=== PATIENT | male | born 1965 | race Caucasian/White ===

== ENCOUNTER 2020-05-27 15:31 | Inpatient (IN) | payer BC ==
--- NOTE | 2020-05-27 15:48 | ED ---
SOB HPI - General Chief Complaint: Upper Respiratory Infection Stated Complaint: JUAN, +COVID Time Seen by Provider: 05/27/20 15:44 Source: patient, RN notes reviewed, old records reviewed Mode of arrival: ambulatory Limitations: no limitations - History of Present Illness Initial Comments: This is a 54-year-old male DF for evaluation presents today for evaluation regards to shortness of breath known history of coronavirus infection positive coronavirus testing and sent in today for evaluation of low oxygen level along with. Patient has had persistent fevers and not feeling well. Patient does have history of high blood pressure high cholesterol MD Complaint: shortness of breath, cough -: days(s) Severity: moderate Severity scale (1-10): 7 Quality: dull Consistency: constant Improves With: nothing Worsens With: exertion, movement Known History Of: other (Known coronavirus) Context: recent URI, recent illness Associated Symptoms: cough Treatments Prior to Arrival: none - Related Data Allergies Allergy/AdvReac Type Severity Reaction Status Date / Time No Known Allergies Allergy Verified 05/27/20 15:37 Review of Systems ROS Statement: Those systems with pertinent positive or pertinent negative responses have been documented in the HPI. ROS Other: All systems not noted in ROS Statement are negative. Past Medical History Past Medical History: Hyperlipidemia, Hypertension History of Any Multi-Drug Resistant Organisms: None Reported Past Surgical History: Coronary Bypass/CABG, Heart Catheterization With Stent Past Psychological History: No Psychological Hx Reported Smoking Status: Never smoker Past Alcohol Use History: Occasional Past Drug Use History: None Reported General Exam Limitations: no limitations General appearance: alert, in no apparent distress, anxious Head exam: Present: atraumatic, normocephalic, normal inspection Eye exam: Present: normal appearance, PERRL, EOMI. Absent: scleral icterus, co njunctival injection, periorbital swelling ENT exam: Present: normal exam, mucous membranes moist Neck exam: Present: normal inspection. Absent: tenderness, meningismus, lymphadenopathy Respiratory exam: Present: normal lung sounds bilaterally. Absent: respiratory distress, wheezes, rales, rhonchi, stridor Cardiovascular Exam: Present: regular rate, normal rhythm, normal heart sounds. Absent: systolic murmur, diastolic murmur, rubs, gallop, clicks GI/Abdominal exam: Present: soft, normal bowel sounds. Absent: distended, tenderness, guarding, rebound, rigid Extremities exam: Present: normal inspection, full ROM, normal capillary refill. Absent: tenderness, pedal edema, joint swelling, calf tenderness Back exam: Present: normal inspection Neurological exam: Present: alert, oriented X3, CN II-XII intact Psychiatric exam: Present: normal affect, normal mood Skin exam: Present: warm, dry, intact, normal color. Absent: rash Course Vital Signs 05/27/20 05/27/20 15:38 16:17 Temperature 99.6 F 102.4 F H Pulse Rate 92 Respiratory 18 Rate Blood Pressure 131/84 O2 Sat by Pulse 96 Oximetry - Reevaluation(s) Reevaluation #1: 05/27/20 17:29 Medical records reviewed Reevaluation #2: 05/27/20 17:29 This is certainly short of breath 05/27/20 17:29 Patient has no pain fever and symptoms are improved Reevaluation #3: 05/27/20 17:29 Spoke patient regarding findings, questions answered - Consultations Consultation #1: Spoke with PMH who we will admit Medical Decision Making - Medical Decision Making 54 male DF for evaluation patient Dese for evaluation of positive coronavirus l ow oxygen, patient is positive coronavirus pneumonia patient be admitted for continued medication treatment and evaluation monitoring of pulmonary support - Lab Data Result diagrams: 05/27/20 16:01 05/27/20 16:01 Lab Results 05/27/20 05/27/20 05/27/20 Range/Units 16:01 16:01 16:01 WBC 6.5 (3.8-10.6) k/uL RBC 5.14 (4.30-5.90) m/uL Hgb 15.4 (13.0-17.5) gm/dL Hct 45.3 (39.0-53.0) % MCV 88.2 (80.0-100.0) fL MCH 30.0 (25.0-35.0) pg MCHC 34.0 (31.0-37.0) g/dL RDW 12.5 (11.5-15.5) % Plt Count 177 (150-450) k/uL Neutrophils % 75 % Lymphocytes % 18 % Monocytes % 5 % Eosinophils % 1 % Basophils % 1 % Neutrophils # 4.9 (1.3-7.7) k/uL Lymphocytes # 1.2 (1.0-4.8) k/uL Monocytes # 0.3 (0-1.0) k/uL Eosinophils # 0.0 (0-0.7) k/uL Basophils # 0.0 (0-0.2) k/uL PT 9.7 (9.0-12.0) sec INR 0.9 (<1.2) APTT 24.5 (22.0-30.0) sec Sodium 134 L (137-145) mmol/L Potassium 3.7 (3.5-5.1) mmol/L Chloride 101 (98-107) mmol/L Carbon Dioxide 24 (22-30) mmol/L Anion Gap 9 mmol/L BUN 16 (9-20) mg/dL Creatinine 0.80 (0.66-1.25) mg/dL Est GFR (CKD-EPI)AfAm >90 (>60 ml/min/1.73 sqM) Est GFR (CKD-EPI)NonAf >90 (>60 ml/min/1.73 sqM) Glucose 104 H (74-99) mg/dL Plasma Lactic Acid Ariel (0.7-2.0) mmol/L Calcium 8.5 (8.4-10.2) mg/dL Magnesium 2.2 (1.6-2.3) mg/dL Total Bilirubin 0.8 (0.2-1.3) mg/dL AST 49 (17-59) U/L ALT 39 (4-49) U/L Alkaline Phosphatase 77 (38-126) U/L Lactate Dehydrogenase 812 H (313-618) U/L C-Reactive Protein 54.2 H (<10.0) mg/L Total Protein 6.8 (6.3-8.2) g/dL Albumin 3.9 (3.5-5.0) g/dL 05/27/20 Range/Units 16:01 WBC (3.8-10.6) k/uL RBC (4.30-5.90) m/uL Hgb (13.0-17.5) gm/dL Hct (39.0-53.0) % MCV (80.0-100.0) fL MCH (25.0-35.0) pg MCHC (31.0-37.0) g/dL RDW (11.5-15.5) % Plt Count (150-450) k/uL Neutrophils % % Lymphocytes % % Monocytes % % Eosinophils % % Basophils % % Neutrophils # (1.3-7.7) k/uL Lymphocytes # (1.0-4.8) k/uL Monocytes # (0-1.0) k/uL Eosinophils # (0-0.7) k/uL Basophils # (0-0.2) k/uL PT (9.0-12.0) sec INR (<1.2) APTT (22.0-30.0) sec Sodium (137-145) mmol/L Potassium (3.5-5.1) mmol/L Chloride (98-107) mmol/L Carbon Dioxide (22-30) mmol/L Anion Gap mmol/L BUN (9-20) mg/dL Creatinine (0.66-1.25) mg/dL Est GFR (CKD-EPI)AfAm (>60 ml/min/1.73 sqM) Est GFR (CKD-EPI)NonAf (>60 ml/min/1.73 sqM) Glucose (74-99) mg/dL Plasma Lactic Acid Ariel 1.5 (0.7-2.0) mmol/L Calcium (8.4-10.2) mg/dL Magnesium (1.6-2.3) mg/dL Total Bilirubin (0.2-1.3) mg/dL AST (17-59) U/L ALT (4-49) U/L Alkaline Phosphatase (38-126) U/L Lactate Dehydrogenase (313-618) U/L C-Reactive Protein (<10.0) mg/L Total Protein (6.3-8.2) g/dL Albumin (3.5-5.0) g/dL - EKG Data -: EKG Interpreted by Me (EKG shows sinus rhythm 92 NM 186 QRS 90 QTC 435) - Radiology Data Radiology results: report reviewed (Chest x-rays positive for pneumonia), image reviewed Critical Care Time Critical Care Time: Yes Total Critical Care Time: 31 Disposition Clinical Impression: Fever, Coronavirus infection, Pneumonia due to COVID-19 virus, Hypoxia Disposition: ADMITTED IP TO THIS [facility] Condition: Fair Is patient prescribed a controlled substance at d/c from ED?: No Referrals: Omar Spencer MD [Primary Care Provider] - 1-2 days
[2020-05-27 16:30] LABS: Basophils % (A) 1 %; Eosinophils % (A) 1 %; HCT 45.3 % (39.0-53.0); HGB 15.4 gm/dL (13.0-17.5); Lymphocytes # (A) 1.2 k/uL (1.0-4.8); Lymphocytes % (A) 18 %; MCV 88.2 fL (80.0-100.0); Mean Platelet Volume 7.1; Monocytes # (A) 0.3 k/uL (0-1.0); Monocytes % (A) 5 %; Neutrophils # (A) 4.9 k/uL (1.3-7.7); Neutrophils % (A) 75 %; Platelet Count 177 k/uL (150-450); RBC 5.14 m/uL (4.30-5.90); RDW 12.5 % (11.5-15.5); WBC 6.5 k/uL (3.8-10.6)
[2020-05-27 16:40] LABS: INR 0.9 (<1.2); Partial Thromboplastin Time 24.5 sec (22.0-30.0); Prothrombin Time 9.7 sec (9.0-12.0)
[2020-05-27] MEDS ORDERED: ACETAMINOPHEN TAB 500 MG TAB PO STA (16:46)
[2020-05-27] MEDS ORDERED: IBUPROFEN 600 MG TAB PO STA (16:46)
--- NOTE | 2020-05-27 16:46 | XR ---
EXAMINATION TYPE: XR chest 1V portable DATE OF EXAM: 05/27/2020 COMPARISON: NONE HISTORY: Short of breath TECHNIQUE: Single view FINDINGS: Heart is normal. There is some infiltrate left lower lobe. There are sternal wires. There a re chest leads. Costophrenic angles are clear. IMPRESSION: Mild infiltrate in the left lower lobe. No heart failure seen. Normal heart.
[2020-05-27 16:47] LABS: ALT 39 U/L (4-49); AST 49 U/L (17-59); African American GFR (CKD) >90 (>60 ml/min/1.73 sqM); Albumin 3.9 g/dL (3.5-5.0); Alkaline Phosphatase 77 U/L (38-126); Anion Gap 9 mmol/L; Blood Urea Nitrogen 16 mg/dL (9-20); C Reactive Protein 54.2 mg/L (<10.0); Calcium 8.5 mg/dL (8.4-10.2); Carbon Dioxide 24 mmol/L (22-30); Chloride 101 mmol/L (98-107); Glucose 104 mg/dL (74-99); LDH 812 U/L (313-618); Magnesium 2.2 mg/dL (1.6-2.3); Non-African American GFR(CKD) >90 (>60 ml/min/1.73 sqM); Potassium 3.7 mmol/L (3.5-5.1); Sodium 134 mmol/L (137-145); Total Bilirubin 0.8 mg/dL (0.2-1.3); Total Protein 6.8 g/dL (6.3-8.2)
[2020-05-27] MEDS ORDERED: IPRATROPIUM-ALBUTEROL 3 ML NEB INHALATION PRN (17:25)
[2020-05-27] MEDS ORDERED: PNEUMONIA PROTOCOL UTILIZED 1 EACH MISC PO PRN (17:25)
[2020-05-27] MEDS: SODIUM CHLORIDE 0.9% 1,000 ML IV SCH (18:16)
[2020-05-27] MEDS ORDERED: ALBUTEROL HFA INHALER INHALATION PRN (19:38)
[2020-05-28 03:00] LABS: Ferritin 385.2 ng/mL (22.0-322.0)
[2020-05-28] MEDS: SODIUM CHLORIDE 0.9% 1,000 ML IV SCH ×3 (05:32→22:53)
[2020-05-28] MEDS: ENOXAPARIN 40 MG/0.4 ML SYRINGE SQ SCH (07:57)
[2020-05-28] MEDS: ALBUTEROL HFA INHALER INHALATION PRN ×4 (09:59→21:03)
[2020-05-28] MEDS ORDERED: ZINC SULFATE 220 MG CAP PO SCH (11:30)
[2020-05-28] MEDS: ASCORBIC ACID 500 MG TAB PO SCH (12:03)
[2020-05-28] MEDS: FAMOTIDINE 20 MG TAB PO SCH (12:03)
[2020-05-28] MEDS: CHOLECALCIFEROL 400 UNIT TAB PO SCH (12:04)
[2020-05-28] MEDS: ZINC SULFATE 220 MG CAP PO SCH (12:04)
[2020-05-28] MEDS: dexAMETHasone 2 MG TAB PO SCH (12:04)
[2020-05-28] MEDS: DOXYCYCLINE 100 MG CAP PO SCH ×2 (14:38→20:59)
[2020-05-28] MEDS ORDERED: REMDESIVIR (EUA) 200 MG in SODIUM CHLORIDE 0.9% 250 ML IVPB ONE (16:00)
--- NOTE | 2020-05-28 17:07 | CONS ---
CONSULTATION PULMONARY/CRITICAL CARE CONSULTATION: DATE OF SERVICE: 05/28/2020 This is a 54-year-old gentleman who was admitted with a diagnosis of a Covid-19 pneumonitis. The patient apparently was tested at a [place] facility earlier this past week. He tested positive and was told because he really did not have much in the way of significant symptoms just to go home and rest. At that time, the symptoms included slight fever, headache, muscle aches, joint aches, etc. As the week progressed and as he talked to his physician, the patient's symptoms progressed. He became more short of breath. He had higher fever. He had headache. He just was not feeling any better and for that reason, he came in to be evaluated. He was admitted with a diagnosis of Covid-19 pneumonia. Currently, the patient is feeling a bit short of breath. He did use oxygen last night. He typically does not use oxygen. His symptoms have been primarily what was previously mentioned including fever, chills, cough, shortness of breath, muscle aches, joint aches and severe headache. The patient does carry with him a diagnosis of hypertension and hyperlipidemia. Currently, he is resting comfortably. He has an IV in place. He is on some nasal O2 at 2 L. CURRENT HOME MEDICATIONS: Include Lipitor, aspirin, metoprolol, lisinopril/hydrochlorothiazide, and Plavix. ALLERGIES: Denied. MEDICAL HISTORY: Hyperlipidemia, hypertension, CAD, bypass grafting, heart catheterization with stent. SURGICAL HISTORY: Includes bypass grafting and heart catheterization with stent. SOCIAL HISTORY: Positive for occasional alcohol use. He denies tobacco use. Denies any illicit drug use. FAMILY HISTORY: Noncontributory. Family is healthy. REVIEW OF SYSTEMS: CONSTITUTIONAL: Weakness, fever, fatigue. NEUROLOGIC: Headache. HEENT: Negative. CARDIOVASCULAR: Negative. PULMONARY: Cough, shortness of breath. GI: Negative. : Negative. RHEUMATOLOGIC: Joint aches, muscle aches. IMMUNOLOGIC: Negative. ENDOCRINOLOGIC: Negative. DERMATOLOGIC: Negative. PHYSICAL EXAMINATION: Vital signs are reviewed. Temperature 99.8, T-max 102.4, heart rate is 103, respiratory rate 20, blood pressure 127/77, mean 93, room air saturations 93%. He appears just mildly tachypneic. No audible wheezing, use of accessory muscles or conversational dyspnea. HEENT: Examination is grossly unremarkable. Mucous membranes are moist. Nasal O2 noted. NECK: Supple. Full range of motion. No adenopathy. Neck veins are flat. CARDIOVASCULAR: Examination reveals mild tachycardia. Heart rate about 100. S1, S2 normal. No murmur. LUNGS: Reveal diffuse coarse rhonchi bilaterally. No wheezes or crackles. ABDOMEN: Soft. Bowel sounds are heard. EXTREMITIES are intact. No cyanosis, clubbing, or edema. SKIN: Without rash. NEUROLOGIC: Examination is brief but nonfocal. LABS: Reviewed. White count 6.5, hemoglobin 15.4, hematocrit 45.3, platelet count 177,000. PT/INR PTT normal. D-dimer 0.31. Sodium 134, potassium 3.7, chloride 101, CO2 24, gap 9. BUN and creatinine were 16 and 0.8. Glucose 104, ferritin 385, LDH 812. C- reactive protein 54.2. Chest x-ray in my opinion shows minimal to mild infiltrate in the left lower lobe. Current medications are reviewed. The patient is on Tylenol, albuterol inhaler, vitamin C, vitamin D3, Decadron, doxycycline, Lovenox, Pepcid, ibuprofen, melatonin, a saline IV at 100 mL an hour, and zinc. We did ask pharmacy to provide Remdesivir. ASSESSMENT: 1. Covid-19 pneumonia/pneumonitis. 2. History of hypertension. 3. Hyperlipidemia. 4. History of coronary artery disease with previous bypass grafting. 5. Previous heart catheterization with stent. PLAN: Please see the above orders. We asked for all those orders plus Remdesivir. We will have to check with the nurse and make sure that it was prescribed. Typically it is 200 mg IV on day 1, 100 mg IV on day 2, 3, 4 and 5. No additional recommendations are made. We will continue to follow. Prognosis is guarded. Will be on the lookout for early deterioration which might necessitate transfer to the intensive care unit. MMODL / IJN: [id number] /
[2020-05-28] MEDS: MELATONIN 5 MG TABLET PO SCH (20:59)
--- NOTE | 2020-05-28 22:13 | P.HPIM ---
History of Present Illness H&P Date: 05/28/20 Chief Complaint: JUAN Patient is in 54-year-old male with a known history of hypertension, hyperlipidemia, coronary artery disease with history of bypass graft and also stent placement came to ER with complaints of worsening shortness of breath and persistence fevers and not feeling well. Patient states that he has been having shortness of breath and cough and fevers and cold-like symptoms for the past 2 weeks and was seen at [facility] about a week ago and tested for COVID-19 viral infection which came out positive. Patient was told to go to hospital if he gets low oxygen below 90%. Patient presents to ER due to shortness of breath and not feeling well. Chest x-ray showed mild infiltrate in the left lower lobe. No heart failure is seen. Normal heart. Lab data showed d-dimer 0.31, ferritin 385, LDH 812 and CRP 54.2 TSH 2.94 Procalcitonin 0.05 Review of Systems Constitutional: does have fever, no chills . generalized weakness and malaise. Abdomen: Patient denied nausea vomiting and diarrhea and abdominal pain. Cardiovascular: Patient denies any chest pain or short of breath no palpitations. Respiratory: patient does have cough without sputum production. + shortness of breath Neurologic: Patient denied any numbness or tingling headache. Musculoskeletal: Patient denies any complaints of joint swelling or deformity. Skin: Negative Psychiatric: Negative Endocrine: No heat or cold intolerance. No recent weight gain. Genitourinary: No dysuria or hematuria. All other 14 point ROS negative except the above Past Medical History Past Medical History: Hyperlipidemia, Hypertension History of Any Multi-Drug Resistant Organisms: None Reported Past Surgical History: Coronary Bypass/CABG, Heart Catheterization With Stent Past Anesthesia/Blood Transfusion Reactions: No Reported Reaction Date of Last Stent Placement:: 02/24/2018 Past Psychological History: No Psychological Hx Reported Smoking Status: Never smoker Past Alcohol Use History: Occasional Past Drug Use History: None Reported Medications and Allergies Home Medications Medication Instructions Recorded Confirmed Type Aspirin [Jeannette Aspirin EC] 81 mg PO DAILY 05/27/20 05/27/20 History Atorvastatin Calcium [Lipitor] 80 mg PO HS 05/27/20 05/27/20 History Clopidogrel [Plavix] 75 mg PO DAILY 05/27/20 05/27/20 History Lisinopril-Hctz 20-12.5 mg 1 tab PO DAILY 05/27/20 05/27/20 History [Zestoretic 20-12.5] Metoprolol Succinate (ER) [Toprol 50 mg PO DAILY 05/27/20 05/27/20 History XL] Allergies Allergy/AdvReac Type Severity Reaction Status Date / Time No Known Allergies Allergy Verified 05/27/20 15:37 Physical Exam Vitals: Vital Signs Temp Pulse Pulse Resp BP BP Pulse Ox 05/28/20 08:08 20 05/28/20 07:26 99.8 F H 83 17 127/77 93 L 05/28/20 00:45 97.7 F 103 H 20 141/42 95 05/28/20 00:00 16 05/27/20 19:45 16 05/27/20 19:18 78 16 05/27/20 19:08 76 18 05/27/20 18:30 98.7 F 74 16 131/82 95 05/27/20 18:20 99.5 F 74 16 134/89 97 05/27/20 16:17 102.4 F H 05/27/20 15:38 99.6 F 92 18 131/84 96 Intake and Output 05/27/20 05/28/20 05/28/20 22:59 06:59 14:59 Other: Voiding Method Toilet Toilet Toilet # Voids 1 1 Weight 106.594 kg PHYSICAL EXAMINATION: Patient is lying in the bed comfortably, no acute distress, awake alert and oriented.. HEENT: Normocephalic. Neck is supple. Pupils reactive. Nostrils clear. Oral cavity is moist. Ears reveal no drainage. Neck reveals no JVD, carotid bruits, or thyromegaly. CHEST EXAMINATION: Trachea is central. Symmetrical expansion. Lung miller clear to auscultation and percussion. CARDIAC: Normal S1, S2 with no gallops. No murmurs ABDOMEN: Soft. Bowel sounds normal. No organomegaly. No abdominal bruits. Extremities: reveal no edema. No clubbing or cyanosis Neurologically awake, alert, oriented x3 with well-coordinated movements. No focal deficits noted Skin: No rash or skin lesions. Psychiatric: Coperative. Nonsuicidal Musculoskeletal: No joint swelling or deformity. Normal range of motion. Results CBC & Chem 7: 05/27/20 16:01 05/27/20 16:01 Labs: Abnormal Lab Results - Last 24 Hours (Table) 05/27/20 Range/Units 16:01 Sodium 134 L (137-145) mmol/L Glucose 104 H (74-99) mg/dL Ferritin 385.2 H (22.0-322.0) ng/mL Lactate Dehydrogenase 812 H (313-618) U/L C-Reactive Protein 54.2 H (<10.0) mg/L Thrombosis Risk Factor Assmnt - DVT/VTE Prophylaxis DVT/VTE Prophylaxis: Pharmacologic Prophylaxis ordered - Choose All That Apply Each Factor Represents 1 point: Age 41-60 years Other Risk Factors: No Thrombosis Risk Factor Assessment Total Risk Factor Score: 1 Thrombosis Risk Factor Assessment Level: Low Risk Assessment and Plan Assessment: COVID-19 pneumonia mainly left lower lobe Hypertension Hyperlipidemia Coronary disease with a stent placement History of coronary artery bypass graft DVT prophylaxis Plan: Patient will be continued on oxygen therapy and was started on dexamethasone 6 mg daily. Continued anticoagulation with Lovenox 40 mg subcu daily and Remdesivir was started. Pulmonary and ID is on board. Continue to follow closely for any respiratory failure. Time with Patient: Greater than 30
--- NOTE | 2020-05-28 23:40 | P.CONS ---
History of Present Illness - Reason for Consult Consult date: 05/28/20 covid 19 Requesting physician: Asiya Tyler - Chief Complaint fever and shortness of breath x few days - History of Present Illness Patient is a 54-year-old male with a past medical history on disease presenting to the ER with chief complaints of shortness of breath not feeling well and fever the patient's symptoms started about 2 weeks ago the patient curr ently did have symptoms mostly of a URI symptoms sore throat body aches afterwards for having shortness of breath or cough and fever patient apparently was seen at the [facility] about a week and he tested positive for covid 19, patient currently was thought to be not symptomatic from his illness and he was advised to rest at home patient mentions over the last few days started having any shortness of breath and cough, patient said that he talk to his primary care physician in the ER patient presented to [facility] ER last night patient on telemetry did have a fever of 102F patient did have O2 sats in the 90s patient did have a normal white count and no lymphopenia patient did have a normal d-dimer, liver enzymes normal pro-calcitonin was normal and speech and CRP slightly elevated patient did have a C6 with mild elevated left lower lobe patient has been admitted to the hospital for acute coronary event in the morning pulmonary service has seen the patient and started the patient on Remdisivir however the patient did refuse per the nursing staff Review of Systems Positive point has been mentioned in the HPI rest of the systems are negative Past Medical History Past Medical History: Hyperlipidemia, Hypertension History of Any Multi-Drug Resistant Organisms: None Reported Past Surgical History: Coronary Bypass/CABG, Heart Catheterization With Stent Past Anesthesia/Blood Transfusion Reactions: No Reported Reaction Date of Last Stent Placement:: 02/24/2018 Past Psychological History: No Psychological Hx Reported Smoking Status: Never smoker Past Alcohol Use History: Occasional Past Drug Use History: None Reported Medications and Allergies Home Medications Medication Instructions Recorded Confirmed Type Aspirin [Wolfe Aspirin EC] 81 mg PO DAILY 05/27/20 05/27/20 History Atorvastatin Calcium [Lipitor] 80 mg PO HS 05/27/20 05/27/20 History Clopidogrel [Plavix] 75 mg PO DAILY 05/27/20 05/27/20 History Lisinopril-Hctz 20-12.5 mg 1 tab PO DAILY 05/27/20 05/27/20 History [Zestoretic 20-12.5] Metoprolol Succinate (ER) [Toprol 50 mg PO DAILY 05/27/20 05/27/20 History XL] Allergies Allergy/AdvReac Type Severity Reaction Status Date / Time No Known Allergies Allergy Verified 05/27/20 15:37 Physical Exam Vitals: Vital Signs Temp Pulse Resp BP Pulse Ox 05/28/20 17:32 94 L 05/28/20 15:20 98.7 F 88 17 142/83 92 L 05/28/20 08:08 20 05/28/20 07:26 99.8 F H 83 17 127/77 93 L 05/28/20 00:45 97.7 F 103 H 20 141/42 95 05/28/20 00:00 16 Intake and Output 05/28/20 05/28/20 05/28/20 06:59 14:59 22:59 Intake Total 300 Balance 300 Intake: Oral 300 Other: Voiding Method Toilet Toilet # Voids 1 2 GENERAL DESCRIPTION: Middle-aged male lying in bed, no distress. No tachypnea or accessory muscle of respiration use. HEENT: Shows Pallor , no scleral icterus. Oral mucous membrane is dry. No pharyngeal erythema or thrush NECK: Trachea central, no thyromegaly. LUNGS: Unlabored breathing. Decreased intensity of breath sounds. No wheeze or crackle. HEART: S1, S2, regular rate and rhythm. No loud murmur ABDOMEN: Soft, no tenderness , guarding or rigidity, no organomegaly EXTREMITIES: No edema of feet. SKIN: No rash, no masses palpable. NEUROLOGICAL: The patient is awake, alert, oriented x3, mood and affect normal. Results CBC & Chem 7: 05/27/20 16:01 05/27/20 16:01 Labs: Abnormal Lab Results - Last 24 Hours (Table) 05/27/20 05/28/20 Range/Units 16:01 11:33 Ferritin 385.2 H (22.0-322.0) ng/mL Vitamin D 25-Hydroxy 24.9 L (30.0-100.0) ng/mL Microbiology - Last 24 Hours (Table) 05/27/20 16:01 Blood Culture - Preliminary Blood No Growth after 24 hours Assessment and Plan Assessment: 1- patient presented to hospital with increasing shortness of breath and cough in this patient's symptom has been going on for more than a week and about a we ek ago he was diagnosed with covid 19 infection at this patient to have a fever however the patient to not have lymphopenia elevated liver enzymes or elevated d-dimer at possibly the patient has possibly passed the viremic phase and the patient needed to be observed closely for cytokine storm and no evidence of secondary bacterial pneumonia (1) Pneumonia due to COVID-19 virus Current Visit: Yes Status: Acute Code(s): U07.1 - COVID-19; J12.89 - OTHER VIRAL PNEUMONIA SNOMED Code(s): 599119633834300062 Plan: 1- dexamethasone 6 mg by mouth daily, Lovenox and zinc sulfate 2- droplet isolation and respiratory support 3-no need for systemic antibiotics We will follow on clinical condition and cultures to further adjust medication if needed Thank you for this consultation will follow this patient with you Time with Patient: Greater than 30
[2020-05-29] MEDS: ALBUTEROL HFA INHALER INHALATION PRN ×2 (07:46→11:55)
[2020-05-29] MEDS: dexAMETHasone 2 MG TAB PO SCH (09:02)
[2020-05-29] MEDS: DOXYCYCLINE 100 MG CAP PO SCH ×2 (09:02→21:10)
[2020-05-29] MEDS: ENOXAPARIN 40 MG/0.4 ML SYRINGE SQ SCH (09:02)
[2020-05-29] MEDS: CHOLECALCIFEROL 400 UNIT TAB PO SCH (09:02)
[2020-05-29] MEDS: ASCORBIC ACID 500 MG TAB PO SCH (09:02)
[2020-05-29] MEDS: ZINC SULFATE 220 MG CAP PO SCH (09:02)
[2020-05-29] MEDS: FAMOTIDINE 20 MG TAB PO SCH (09:02)
[2020-05-29] MEDS: SODIUM CHLORIDE 0.9% 1,000 ML IV SCH (10:56)
[2020-05-29] MEDS ORDERED: REMDESIVIR (EUA) 200 MG in SODIUM CHLORIDE 0.9% 250 ML IVPB ONE (13:30)
--- NOTE | 2020-05-29 14:32 | P.PN ---
Subjective Progress Note Date: 05/29/20 Principal diagnosis: This is a pleasant 54-year-old gentleman who was admitted on 05/27/2020 with complaints of increasing shortness of breath cough and congestion. He had been tested in the outpatient setting at a [place] facility and was found to be CoVID 19 positive. X-ray does show evidence of CoVID pneumonitis. He had been seen and evaluated yesterday by Dr. Panchal who recommended initiating Remdesivir. However, the patient had read the pamphlet from the pharmacy and based on his recurrent kidney stones he was reluctant to start it. He is seen today in follow-up on the regular medical floor. He is resting fairly comfortably in bed. Awake and alert in no acute distress. O2 saturation 90% on room air. He's afebrile now. Hemodynamically stable. Blood culture reveals no growth. He remains on vitamin C, vitamin D, doxycycline, Lovenox, Pepcid, melatonin and zinc. Objective - Vital Signs Vital signs: Vital Signs Temp 98.0 F 05/29/20 07:00 Pulse 70 05/29/20 07:00 Resp 18 05/29/20 08:20 BP 127/74 05/29/20 07:00 Pulse Ox 90 L 05/29/20 07:00 Intake & Output 05/28/20 05/29/20 05/29/20 18:59 06:59 18:59 Intake Total 300 100 700 Balance 300 100 700 Intake: Intake, IV Titration 300 Amount Sodium Chloride 0.9% 1, 300 000 ml @ 75 mls/hr IV . [id number] [facility] Rx#:[id number] Oral 300 100 400 Other: Voiding Method Toilet Toilet Toilet # Voids 2 1 - Exam GENERAL EXAM: Alert, active, very pleasant 54-year-old gentleman, on room air, comfortable in no apparent distress. HEAD: Normocephalic. EYES: Normal reaction of pupils, equal size. NOSE: Clear with pink turbinates. THROAT: No erythema or exudates. NECK: No masses, no JVD. CHEST: No chest wall deformity. LUNGS: Equal air entry with few scattered rhonchi bilaterally. CVS: S1 and S2 normal with no audible murmur, regular rhythm. ABDOMEN: No hepatosplenomegaly, normal bowel sounds, no guarding or rigidity. SPINE: No scoliosis or deformity SKIN: No rashes CENTRAL NERVOUS SYSTEM: No focal deficits, tone is normal in all 4 extremities. EXTREMITIES: There is no peripheral edema. No clubbing, no cyanosis. Peripher al pulses are intact. - Labs CBC & Chem 7: 05/27/20 16:01 05/27/20 16:01 Labs: Abnormal Lab Results - Last 24 Hours (Table) 05/28/20 Range/Units 11:33 Vitamin D 25-Hydroxy 24.9 L (30.0-100.0) ng/mL Microbiology - Last 24 Hours (Table) 05/27/20 16:01 Blood Culture - Preliminary Blood No Growth after 24 hours Assessment and Plan Assessment: 1 Acute Covid 19 pneumonitis 2 Elevated inflammatory in markers secondary to above 3 Hypertension 4 History of coronary disease with previous stent placement and bypass grafting 5 Hyperlipidemia Plan: The patient was seen and evaluated by Dr. Panchal He did convince the patient to start on Remdesivir, he'll receive 200 mg today Remdesivir 100 mg the next 4 days Continue the current treatment plan Repeat inflammatory markers in a.m. Repeat chest x-ray in a.m. We will continue to follow I, the cosigning physician, performed a history & physical examination of the p atient. Lungs sounds with bilateral scattered rhonchi. Maintaining good O2 saturations in the 90s on room air. I discussed the assessment and plan of care with my nurse practitioner, Kathleen Jensen. I attest to the above note as dictated by her.
[2020-05-29] MEDS ORDERED: REMDESIVIR (EUA) 100 MG in SODIUM CHLORIDE 0.9% 250 ML IVPB SCH (16:00)
[2020-05-29] MEDS: MELATONIN 5 MG TABLET PO SCH (21:09)
--- NOTE | 2020-05-29 21:58 | P.PN ---
Subjective Progress Note Date: 05/29/20 Principal diagnosis: Acute COVID-19 pneumonia Patient is in 54-year-old male with a known history of hypertension, hyperlipidemia, coronary artery disease with history of bypass graft and also stent placement came to ER with complaints of worsening shortness of breath and persistence fevers and not feeling well. Patient states that he has been having shortness of breath and cough and fevers and cold-like symptoms for the past 2 weeks and was seen at [facility] about a week ago and tested for COVID-19 viral infection which came out positive. Patient was told to go to hospital if he gets low oxygen below 90%. Patient presents to ER due to shortness of breath and not feeling well. Chest x-ray showed mild infiltrate in the left lower lobe. No heart failure is seen. Normal heart. Lab data showed d-dimer 0.31, ferritin 385, LDH 812 and CRP 54.2 TSH 2.94 Procalcitonin 0.05 05/29/2020 Patient is currently lying in the bed and is comfortable. No acute distress. Patient has been afebrile. Blood culture showed no growth Patient is being continued on remdesivir, lovenox and dexamethasone. Continue with vitamin supplementation with vitamin D and C No other acute overnight issues. Continue with contact and droplet precautions. Current medications reviewed.. Objective - Vital Signs Vital signs: Vital Signs Temp 98 F 05/29/20 14:10 Pulse 68 05/29/20 14:10 Resp 16 05/29/20 14:10 BP 134/77 05/29/20 14:10 Pulse Ox 93 L 05/29/20 15:09 Intake & Output 05/29/20 05/29/20 05/30/20 06:59 18:59 06:59 Intake Total 100 700 Balance 100 700 Intake: Intake, IV Titration 300 Amount Sodium Chloride 0.9% 1, 300 000 ml @ 75 mls/hr IV . [id number] [facility] Rx#:[id number] Oral 100 400 Other: Voiding Method Toilet Toilet # Voids 1 - Exam PHYSICAL EXAMINATION: Patient is lying in the bed comfortably, no acute distress, awake alert and oriented.. HEENT: Normocephalic. Neck is supple. Pupils reactive. Nostrils clear. Oral cavity is moist. Ears reveal no drainage. Neck reveals no JVD, carotid bruits, or thyromegaly. CHEST EXAMINATION: Trachea is central. Symmetrical expansion. Lung miller clear to auscultation and percussion. CARDIAC: Normal S1, S2 with no gallops. No murmurs ABDOMEN: Soft. Bowel sounds normal. No organomegaly. No abdominal bruits. Extremities: reveal no edema. No clubbing or cyanosis Neurologically awake, alert, oriented x3 with well-coordinated movements. No focal deficits noted Skin: No rash or skin lesions. Psychiatric: Coperative. Nonsuicidal Musculoskeletal: No joint swelling or deformity. Normal range of motion. - Labs CBC & Chem 7: 05/27/20 16:01 05/27/20 16:01 Labs: Microbiology - Last 24 Hours (Table) 05/27/20 16:01 Blood Culture - Preliminary Blood No Growth after 48 hours Assessment and Plan Assessment: COVID-19 pneumonia mainly left lower lobe Hypertension Hyperlipidemia Coronary disease with a stent placement History of coronary artery bypass graft DVT prophylaxis Plan: Patient will be continued on oxygen therapy and was started on dexamethasone 6 mg daily. Continued anticoagulation with Lovenox 40 mg subcu daily and Remdesivir was started. Pulmonary and ID is on board. Continue to follow closely for any respiratory failure. Time with Patient: Greater than 30
[2020-05-30] MEDS: SODIUM CHLORIDE 0.9% 1,000 ML IV SCH (01:18)
--- NOTE | 2020-05-30 06:21 | PN ---
PROGRESS NOTE DATE OF SERVICE: 05/29/2020 REASON FOR FOLLOW UP: COVID-19 pneumonia. INTERVAL HISTORY: Patient is currently afebrile. The patient is breathing slightly comfortably. The patient did have abdominal pain and requiring supplemental oxygen. No nausea, no vomiting. No abdominal pain. No diarrhea. PHYSICAL EXAMINATION: Blood pressure 152/83 with a pulse of 75, temperature 98.2. General description is a middle-aged male lying in bed in no distress. Respiratory system: Unlabored breathing, decreased intensity of breath sounds, no wheeze. HEART: S1, S2. Regular rate. ABDOMEN: Soft, no tenderness. LABS: No new labs have been obtained today. DIAGNOSTIC IMPRESSION AND PLAN: Patient with acute COVID-19 pneumonia. The patient is currently covered with Remdesivir started today in addition to dexamethasone, Lovenox, zinc and continue supportive care. MMODL / IJN: [id number] / MTDD
[2020-05-30] MEDS: ALBUTEROL HFA INHALER INHALATION PRN ×2 (07:44→15:17)
[2020-05-30] MEDS: ASCORBIC ACID 500 MG TAB PO SCH (08:03)
[2020-05-30] MEDS: FAMOTIDINE 20 MG TAB PO SCH (08:03)
[2020-05-30] MEDS: DOXYCYCLINE 100 MG CAP PO SCH ×2 (08:03→20:24)
[2020-05-30] MEDS: dexAMETHasone 2 MG TAB PO SCH (08:03)
[2020-05-30] MEDS: CHOLECALCIFEROL 400 UNIT TAB PO SCH (08:03)
[2020-05-30] MEDS: ENOXAPARIN 40 MG/0.4 ML SYRINGE SQ SCH (08:04)
[2020-05-30] MEDS: ZINC SULFATE 220 MG CAP PO SCH (08:10)
--- NOTE | 2020-05-30 08:36 | XR ---
EXAMINATION TYPE: XR chest 1V portable DATE OF EXAM: 05/30/2020 COMPARISON: 05/27/2020 HISTORY: pneumonitis TECHNIQUE: Single frontal view of the chest is obtained. FINDINGS: Heart size is normal is postoperative change. Mild hyperinflation. Arthropathy of the shou lders. No pleural effusion or pneumothorax. Peripheral area of subsegmental consolidation in the left lower lobe. IMPRESSION: 1. Vague peripheral infiltrate left lower lobe laterally.
[2020-05-30 11:19] LABS: C Reactive Protein 2.9 mg/dL (0.0-0.8)
[2020-05-30 11:32] LABS: Ferritin 388.1 ng/mL (22.0-322.0)
[2020-05-30] MEDS: REMDESIVIR (EUA) 100 MG in SODIUM CHLORIDE 0.9% 250 ML IVPB SCH (13:57)
--- NOTE | 2020-05-30 14:27 | P.PN ---
Subjective Progress Note Date: 05/30/20 Principal diagnosis: Acute COVID 19 pneumonia Patient is in 54-year-old male with a known history of hypertension, hyperlipidemia, coronary artery disease with history of bypass graft and also stent placement came to ER with complaints of worsening shortness of breath and persistence fevers and not feeling well. Patient states that he has been having shortness of breath and cough and fevers and cold-like symptoms for the past 2 weeks and was seen at [facility] about a week ago and tested for COVID-19 viral infection which came out positive. Patient was told to go to hospital if he gets low oxygen below 90%. Patient presents to ER due to shortness of breath and not feeling well. Chest x-ray showed mild infiltrate in the left lower lobe. No heart failure is seen. Normal heart.Lab data showed d-dimer 0.31, ferritin 385, LDH 812 and CRP 54.2. TSH 2.94. Procalcitonin 0.05 On 05/30/2020 patient seen in follow-up on general medical surgical floor, he is currently on 2 L of oxygen pulse ox of 91-94%, he has no specific complaints, some mild cough, no complaint of chest pain, his been afebrile. Today's chest x-ray has been reviewed showing the peripheral infiltrate in the left lower lobe laterally. Today's labs have been reviewed showing a d-dimer of 0.3, LDH is trending down and come down to 286, CRP is down to 2.9. Patient continues on doxycycline, oral dexamethasone, she received a second dose of Remdesivir. He is on zinc supplement, and a prophylactic dose of Lovenox Objective - Vital Signs Vital signs: Vital Signs Temp 98.0 F 05/30/20 07:00 Pulse 63 05/30/20 07:00 Resp 18 05/30/20 07:00 BP 131/86 05/30/20 07:00 Pulse Ox 91 L 05/30/20 07:46 Intake & Output 05/29/20 05/30/20 05/30/20 18:59 06:59 18:59 Intake Total 700 400 Balance 700 400 Intake: Intake, IV Titration 300 Amount Sodium Chloride 0.9% 1, 300 000 ml @ 75 mls/hr IV . [id number] [facility] Rx#:[id number] Oral 400 400 Other: Voiding Method Toilet Toilet # Voids 2 - Exam GENERAL EXAM: Alert, very pleasant, 54-year-old white male, on 2 L of oxygen with pulse ox of 91-94% comfortable in no apparent distress. HEAD: Normocephalic/atraumatic. EYES: Normal reaction of pupils, equal size. Conjunctiva pink, sclera white. NOSE: Clear with pink turbinates. THROAT: No erythema or exudates. NECK: No masses, no JVD, no thyroid enlargement, no adenopathy. CHEST: No chest wall deformity. Symmetrical expansion. LUNGS: Equal air entry with no crackles, wheeze, rhonchi or dullness. CVS: Regular rate and rhythm, normal S1 and S2, no gallops, no murmurs, no rubs ABDOMEN: Soft, nontender. No hepatosplenomegaly, normal bowel sounds, no guarding or rigidity. EXTREMITIES: No clubbing, no edema, no cyanosis, 2+ pulses and upper and lower extremities. MUSCULOSKELETAL: Muscle strength and tone normal. SPINE: No scoliosis or deformity SKIN: No rashes CENTRAL NERVOUS SYSTEM: Alert and oriented -3. No focal deficits, tone is normal in all 4 extremities. PSYCHIATRIC: Alert and oriented -3. Appropriate affect. Intact judgment and insight. - Labs CBC & Chem 7: 05/27/20 16:01 05/27/20 16:01 Labs: Abnormal Lab Results - Last 24 Hours (Table) 05/30/20 Range/Units 06:21 Ferritin 388.1 H (22.0-322.0) ng/mL Lactate Dehydrogenase 286 H (120-246) U/L C-Reactive Protein 2.9 H (0.0-0.8) mg/dL Microbiology - Last 24 Hours (Table) 05/27/20 16:01 Blood Culture - Preliminary Blood No Growth after 48 hours Assessment and Plan Plan: Assessment: #1. COVID 19 pneumonia mainly in the left lower lobe #2. Elevated inflammatory markers related to the above #3. Hypertension #4. Coronary artery disease with stent placement and previous history of bypass grafting #5. Hyperlipidemia #6. Lifetime nonsmoker Plan: Continue current medical treatment, continue with oral antibiotics, and Decadron, patient is receiving his second dose of Remdesivir. No worsening shortness of breath, no fever. Continue monitoring O2 saturations, afebrile. Urine, we'll continue to follow his inflammatory markers I performed a history & physical examination of the patient and discussed their management with my nurse practitioner, Angie Rosa. I reviewed the nurse practitioner's note and agree with the documented findings and plan of care. Lung sounds are positive for diminished breath sounds. The findings and the impression was discussed with the patient. I attest to the documentation by the nurse practitioner. Time with Patient: Less than 30
--- NOTE | 2020-05-30 14:29 | P.PN ---
Subjective Acute COVID-19 pneumonia Patient is in 54-year-old male with a known history of hypertension, hyperlipidemia, coronary artery disease with history of bypass graft and also stent placement came to ER with complaints of worsening shortness of breath and persistence fevers and not feeling well. Patient states that he has been having shortness of breath and cough and fevers and cold-like symptoms for the past 2 weeks and was seen at [facility] about a week ago and tested for COVID-19 viral infection which came out positive. Patient was told to go to hospital if he gets low oxygen below 90%. Patient presents to ER due to shortness of breath and not feeling well. Chest x-ray showed mild infiltrate in the left lower lobe. No heart failure is seen. Normal heart. Lab data showed d-dimer 0.31, ferritin 385, LDH 812 and CRP 54.2 TSH 2.94 Procalcitonin 0.05 05/29/2020 Patient is currently lying in the bed and is comfortable. No acute distress. Patient has been afebrile. Blood culture showed no growth Patient is being continued on remdesivir, lovenox and dexamethasone. Continue with vitamin supplementation with vitamin D and C No other acute overnight issues. Continue with contact and droplet precautions. 05/30/2020 Patient is feeling better but still having borderline oxygen saturations will continue to monitor and above-mentioned medications, discharge depends on the clinical course Constitutional: Denied any fatigue denied any fever. Cardio vascular: denied any chest pain, palpitations Gastrointestinal denied any nausea vomiting Pulmonary: Denied any shortness of breath cough Neurologic denied any new focal deficits All inpatient medications were reviewed and appropriate changes in these medications as dictated in the interval history and assessment and plan. Objective - Vital Signs Vital signs: Vital Signs Temp 98.0 F 05/30/20 07:00 Pulse 63 05/30/20 07:00 Resp 18 05/30/20 07:00 BP 131/86 05/30/20 07:00 Pulse Ox 91 L 05/30/20 07:46 Intake & Output 05/29/20 05/30/20 05/30/20 18:59 06:59 18:59 Intake Total 700 400 Balance 700 400 Intake: Intake, IV Titration 300 Amount Sodium Chloride 0.9% 1, 300 000 ml @ 75 mls/hr IV . [id number] [facility] Rx#:[id number] Oral 400 400 Other: Voiding Method Toilet Toilet # Voids 2 - Exam PHYSICAL EXAMINATION: GENERAL: The patient is alert and oriented x3, not in any acute distress. Well developed, well nourished. HEENT: Pupils are round and equally reacting to light. EOMI. No scleral icterus. No conjunctival pallor. Normocephalic, atraumatic. No pharyngeal erythema. No thyromegaly. CARDIOVASCULAR: S1 and S2 present. No murmurs, rubs, or gallops. PULMONARY: Chest is clear to auscultation, no wheezing or crackles. ABDOMEN: Soft, nontender, nondistended, normoactive bowel sounds. No palpable organomegaly. MUSCULOSKELETAL: No joint swelling or deformity. EXTREMITIES: No cyanosis, clubbing, or pedal edema. NEUROLOGICAL: Gross neurological examination did not reveal any focal deficits. SKIN: No rashes. Note: Because of COVID 19 isolation, some of the history and physical exam findings or indirect and obtained from nursing staff, and other physician examinations to avoid unnecessary contact with the patient. - Labs CBC & Chem 7: 05/27/20 16:01 05/27/20 16:01 Labs: Abnormal Lab Results - Last 24 Hours (Table) 05/30/20 Range/Units 06:21 Ferritin 388.1 H (22.0-322.0) ng/mL Lactate Dehydrogenase 286 H (120-246) U/L C-Reactive Protein 2.9 H (0.0-0.8) mg/dL Microbiology - Last 24 Hours (Table) 05/27/20 16:01 Blood Culture - Preliminary Blood No Growth after 48 hours Assessment and Plan Plan: Assessment and Plan Assessment: COVID-19 pneumonia mainly left lower lobe Hypertension Hyperlipidemia Coronary disease with a stent placement History of coronary artery bypass graft DVT prophylaxis Plan: Patient will be continued on oxygen therapy and was started on dexamethasone 6 mg daily. Continued anticoagulation with Lovenox 40 mg subcu daily and Remdesivir was started. Pulmonary and ID following the patient. Continue to follow closely for any respiratory failure.
[2020-05-30] MEDS: MELATONIN 5 MG TABLET PO SCH (20:24)
--- NOTE | 2020-05-31 01:03 | PN ---
PROGRESS NOTE DATE OF SERVICE: 05/30/2020 REASON FOR FOLLOWUP: Acute COVID-19 pneumonia. INTERVAL HISTORY: The patient is currently afebrile. The patient is breathing comfortably on room air today. The patient denies having any chest pain or shortness of breath with minimal cough. No nausea, no vomiting. No abdominal pain, no diarrhea. PHYSICAL EXAMINATION: Blood pressure 133/76, pulse of 68, temperature 98.3. He is 94% on room air. General description is a middle-aged male lying in bed in no distress. RESPIRATORY SYSTEM: Unlabored breathing, decreased intensity of breath sounds. No wheeze. HEART: S1, S2. Regular rate and rhythm. ABDOMEN: Soft, no tenderness. LABS: D-dimer was 0.30 LDH is down to 286. CRP is down to 2.9. DIAGNOSTIC IMPRESSION AND PLAN: Patient with acute COVID-19 pneumonia. Patient is clinically responding to the remdesivir, Lovenox, dexamethasone therapy to continue and monitor clinical course closely. MMODL / IJN: [id number] /
[2020-05-31 06:38] LABS: HGB 15.5 gm/dL (13.0-17.5); MCH 31.8 pg (25.0-35.0); MCHC 34.5 g/dL (31.0-37.0); MCV 92.3 fL (80.0-100.0); Mean Platelet Volume 7.3; Platelet Count 262 k/uL (150-450); RBC 4.87 m/uL (4.30-5.90); RDW 12.3 % (11.5-15.5); WBC 11.2 k/uL (3.8-10.6)
[2020-05-31] MEDS: ALBUTEROL HFA INHALER INHALATION PRN ×2 (08:05→15:01)
[2020-05-31] MEDS: ASCORBIC ACID 500 MG TAB PO SCH (08:53)
[2020-05-31] MEDS: FAMOTIDINE 20 MG TAB PO SCH (08:53)
[2020-05-31] MEDS: DOXYCYCLINE 100 MG CAP PO SCH ×2 (08:53→21:24)
[2020-05-31] MEDS: ENOXAPARIN 40 MG/0.4 ML SYRINGE SQ SCH (08:53)
[2020-05-31] MEDS: dexAMETHasone 2 MG TAB PO SCH (08:54)
[2020-05-31] MEDS: CHOLECALCIFEROL 400 UNIT TAB PO SCH (08:54)
[2020-05-31 09:43] LABS: African American GFR (CKD) 117.4 (60.0-200.0); Anion Gap 9.5 mmol/L (4.00-12.00); BUN/Creat Ratio 23.75 Ratio (12.00-20.00); C Reactive Protein 1.6 mg/dL (0.0-0.8); Calcium 8.9 mg/dL (8.7-10.3); Carbon Dioxide 27.5 mmol/L (21.6-31.8); Non-African American GFR(CKD) 101.3 (60.0-200.0); Potassium 4.4 mmol/L (3.5-5.5)
[2020-05-31 09:59] LABS: Ferritin 355.4 ng/mL (22.0-322.0)
--- NOTE | 2020-05-31 11:56 | P.PN ---
Subjective Progress Note Date: 05/31/20 Principal diagnosis: Acute COVID 19 pneumonia Patient is in 54-year-old male with a known history of hypertension, hyperlipidemia, coronary artery disease with history of bypass graft and also stent placement came to ER with complaints of worsening shortness of breath and persistence fevers and not feeling well. Patient states that he has been having shortness of breath and cough and fevers and cold-like symptoms for the past 2 weeks and was seen at [facility] about a week ago and tested for COVID-19 viral infection which came out positive. Patient was told to go to hospital if he gets low oxygen below 90%. Patient presents to ER due to shortness of breath and not feeling well. Chest x-ray showed mild infiltrate in the left lower lobe. No heart failure is seen. Normal heart.Lab data showed d-dimer 0.31, ferritin 385, LDH 812 and CRP 54.2. TSH 2.94. Procalcitonin 0.05 On 05/30/2020 patient seen in follow-up on general medical surgical floor, he is currently on 2 L of oxygen pulse ox of 91-94%, he has no specific complaints, some mild cough, no complaint of chest pain, his been afebrile. Today's chest x-ray has been reviewed showing the peripheral infiltrate in the left lower lobe laterally. Today's labs have been reviewed showing a d-dimer of 0.3, LDH is trending down and come down to 286, CRP is down to 2.9. Patient continues on doxycycline, oral dexamethasone, she received a second dose of Remdesivir. He is on zinc supplement, and a prophylactic dose of Lovenox On 05/31/2020 patient seen in follow-up on general medical surgical floor. Clinically he remains stable, he is on room air, with pulse ox of 92%, hemodynamically stable, he has been afebrile. No significant cough, no chest pain, breathing is comfortable, with blood cell count is 11.2, hemoglobin is 15.5, d-dimer 0.39, electrolytes were within normal limits, LDH is relatively stable at 298, and CRP is trending down, 1.6, patient will receive his third dose of Remdesivir, and she remains on combination of oral Decadron, prophylactic dose of Lovenox, and zinc sulfate. No acute events overnight Objective - Vital Signs Vital signs: Vital Signs Temp 97.6 F 05/31/20 07:00 Pulse 77 05/31/20 07:00 Resp 17 05/31/20 07:00 BP 179/93 05/31/20 07:00 Pulse Ox 92 L 05/31/20 07:00 Intake & Output 05/30/20 05/31/20 05/31/20 18:59 06:59 18:59 Intake Total 300 Balance 300 Intake: Oral 300 Other: # Voids 5 1 - Exam GENERAL EXAM: Alert, very pleasant, 54-year-old white male, on 2 L of oxygen with pulse ox of 91-94% comfortable in no apparent distress. HEAD: Normocephalic/atraumatic. EYES: Normal reaction of pupils, equal size. Conjunctiva pink, sclera white. NOSE: Clear with pink turbinates. THROAT: No erythema or exudates. NECK: No masses, no JVD, no thyroid enlargement, no adenopathy. CHEST: No chest wall deformity. Symmetrical expansion. LUNGS: Equal air entry with no crackles, wheeze, rhonchi or dullness. CVS: Regular rate and rhythm, normal S1 and S2, no gallops, no murmurs, no rubs ABDOMEN: Soft, nontender. No hepatosplenomegaly, normal bowel sounds, no guarding or rigidity. EXTREMITIES: No clubbing, no edema, no cyanosis, 2+ pulses and upper and lower extremities. MUSCULOSKELETAL: Muscle strength and tone normal. SPINE: No scoliosis or deformity SKIN: No rashes CENTRAL NERVOUS SYSTEM: Alert and oriented -3. No focal deficits, tone is normal in all 4 extremities. PSYCHIATRIC: Alert and oriented -3. Appropriate affect. Intact judgment and insight. - Labs CBC & Chem 7: 05/31/20 06:16 05/31/20 06:16 Labs: Abnormal Lab Results - Last 24 Hours (Table) 05/31/20 05/31/20 Range/Units 06:16 06:16 WBC 11.2 H (3.8-10.6) k/uL BUN/Creatinine Ratio 23.75 H (12.00-20.00) Ratio Glucose 120 H (70-110) mg/dL Ferritin 355.4 H (22.0-322.0) ng/mL Lactate Dehydrogenase 298 H (120-246) U/L C-Reactive Protein 1.6 H (0.0-0.8) mg/dL Microbiology - Last 24 Hours (Table) 05/27/20 16:01 Blood Culture - Preliminary Blood No Growth after 72 hours Assessment and Plan Plan: Assessment: #1. COVID 19 pneumonia mainly in the left lower lobe #2. Elevated inflammatory markers related to the above #3. Hypertension #4. Coronary artery disease with stent placement and previous history of bypass grafting #5. Hyperlipidemia #6. Lifetime nonsmoker Plan: Clinically stable, afebrile, yesterday chest x-ray has been reviewed showing vague peripheral infiltrate in the left lower lobe laterally, no signs have been stable, he is receiving his third dose of Remdesivir. We'll continue following inflammatory markers, patient's febrile pattern, dyspnea, and oxygen saturations I performed a history & physical examination of the patient and discussed their management with my nurse practitioner, Angie Rosa. I reviewed the nurse practitioner's note and agree with the documented findings and plan of care. Lung sounds are positive for diminished breath sounds. The findings and the impression was discussed with the patient. I attest to the documentation by the nurse practitioner. Time with Patient: Less than 30
[2020-05-31] MEDS: ZINC SULFATE 220 MG CAP PO SCH (12:22)
[2020-05-31] MEDS: REMDESIVIR (EUA) 100 MG in SODIUM CHLORIDE 0.9% 250 ML IVPB SCH (14:16)
--- NOTE | 2020-05-31 14:23 | P.PN ---
Subjective Acute COVID-19 pneumonia Patient is in 54-year-old male with a known history of hypertension, hyperlipidemia, coronary artery disease with history of bypass graft and also stent placement came to ER with complaints of worsening shortness of breath and persistence fevers and not feeling well. Patient states that he has been having shortness of breath and cough and fevers and cold-like symptoms for the past 2 weeks and was seen at [facility] about a week ago and tested for COVID-19 viral infection which came out positive. Patient was told to go to hospital if he gets low oxygen below 90%. Patient presents to ER due to shortness of breath and not feeling well. Chest x-ray showed mild infiltrate in the left lower lobe. No heart failure is seen. Normal heart. Lab data showed d-dimer 0.31, ferritin 385, LDH 812 and CRP 54.2 TSH 2.94 Procalcitonin 0.05 05/29/2020 Patient is currently lying in the bed and is comfortable. No acute distress. Patient has been afebrile. Blood culture showed no growth Patient is being continued on remdesivir, lovenox and dexamethasone. Continue with vitamin supplementation with vitamin D and C No other acute overnight issues. Continue with contact and droplet precautions. 05/30/2020 Patient is feeling better but still having borderline oxygen saturations will continue to monitor and above-mentioned medications, discharge depends on the clinical course 05/31/2020 Patient is not requiring any oxygen today will continue and complete course with Remdesivir and steroids and possibility of discharge tomorrow. No fevers for last 24 hours Constitutional: Denied any fatigue denied any fever. Cardio vascular: denied any chest pain, palpitations Gastrointestinal denied any nausea vomiting Pulmonary: Denied any shortness of breath cough Neurologic denied any new focal deficits All inpatient medications were reviewed and appropriate changes in these medications as dictated in the interval history and assessment and plan. Objective - Vital Signs Vital signs: Vital Signs Temp 97.8 F 05/31/20 13:18 Pulse 73 05/31/20 13:18 Resp 17 05/31/20 13:18 BP 139/79 05/31/20 13:18 Pulse Ox 91 L 05/31/20 13:18 Intake & Output 05/30/20 05/31/20 05/31/20 18:59 06:59 18:59 Intake Total 300 Balance 300 Intake: Oral 300 Other: # Voids 5 1 3 - Exam PHYSICAL EXAMINATION: GENERAL: The patient is alert and oriented x3, not in any acute distress. Well developed, well nourished. HEENT: Pupils are round and equally reacting to light. EOMI. No scleral icterus. No conjunctival pallor. Normocephalic, atraumatic. No pharyngeal erythema. No thyromegaly. CARDIOVASCULAR: S1 and S2 present. No murmurs, rubs, or gallops. PULMONARY: Chest is clear to auscultation, no wheezing or crackles. ABDOMEN: Soft, nontender, nondistended, normoactive bowel sounds. No palpable organomegaly. MUSCULOSKELETAL: No joint swelling or deformity. EXTREMITIES: No cyanosis, clubbing, or pedal edema. NEUROLOGICAL: Gross neurological examination did not reveal any focal deficits. SKIN: No rashes. Note: Because of COVID 19 isolation, some of the history and physical exam findings or indirect and obtained from nursing staff, and other physician examinations to avoid unnecessary contact with the patient. - Labs CBC & Chem 7: 05/31/20 06:16 05/31/20 06:16 Labs: Abnormal Lab Results - Last 24 Hours (Table) 05/31/20 05/31/20 Range/Units 06:16 06:16 WBC 11.2 H (3.8-10.6) k/uL BUN/Creatinine Ratio 23.75 H (12.00-20.00) Ratio Glucose 120 H (70-110) mg/dL Ferritin 355.4 H (22.0-322.0) ng/mL Lactate Dehydrogenase 298 H (120-246) U/L C-Reactive Protein 1.6 H (0.0-0.8) mg/dL Microbiology - Last 24 Hours (Table) 05/27/20 16:01 Blood Culture - Preliminary Blood No Growth after 72 hours Assessment and Plan Plan: Assessment and Plan Assessment: COVID-19 pneumonia mainly left lower lobe Hypertension Hyperlipidemia Coronary disease with a stent placement History of coronary artery bypass graft DVT prophylaxis Plan: Patient will be continued on oxygen therapy and was started on dexamethasone 6 mg daily. Continued anticoagulation with Lovenox 40 mg subcu daily and Remdesivir was started. Pulmonary and ID following the patient. Continue to follow closely for any respiratory failure.
--- NOTE | 2020-05-31 17:28 | PN ---
PROGRESS NOTE DATE OF SERVICE: 05/31/2020 REASON FOR FOLLOWUP: Acute COVID-19 pneumonia. INTERVAL HISTORY: The patient is currently afebrile. The patient is breathing more comfortably. He denies having any chest pain or shortness of breath, no cough. No nausea, no vomiting. No abdominal pain and diarrhea has resolved. PHYSICAL EXAMINATION: Blood pressure 110/79 with a pulse of 90, temperature of 97.8. He is 91% on room air. General description is a middle-aged male, lying in bed in no distress. RESPIRATORY SYSTEM: Unlabored breathing, decreased breath sounds at the base, no wheeze. HEART: S1, S2. Regular rate and rhythm. ABDOMEN: Soft, no tenderness. LABS: White count 11.2, BUN of 19, creatinine 0.8. IMPRESSION/PLAN: 1. Patient with acute COVID-19 pneumonia in this patient with overall clinical improvement. The patient is currently covered with Remdisivir , dexamethasone, Lovenox. 2. Continue to finish a 5-day course of therapy. Continue supportive care. MMKOBYL / RONN: [id number] / MTDD
[2020-05-31] MEDS: MELATONIN 5 MG TABLET PO SCH (21:25)
[2020-06-01 08:11] VITALS: BP 148/75; PULSE 75; RESP 18; TEMP 98
[2020-06-01] MEDS: ENOXAPARIN 40 MG/0.4 ML SYRINGE SQ SCH (08:29)
[2020-06-01] MEDS: ASCORBIC ACID 500 MG TAB PO SCH (08:29)
[2020-06-01] MEDS: DOXYCYCLINE 100 MG CAP PO SCH (08:30)
[2020-06-01] MEDS: ZINC SULFATE 220 MG CAP PO SCH (08:30)
[2020-06-01] MEDS: CHOLECALCIFEROL 400 UNIT TAB PO SCH (08:30)
[2020-06-01] MEDS: dexAMETHasone 2 MG TAB PO SCH (08:31)
[2020-06-01] MEDS: FAMOTIDINE 20 MG TAB PO SCH (08:32)
[2020-06-01] MEDS: ALBUTEROL HFA INHALER INHALATION PRN ×2 (09:14→13:30)
[2020-06-01 09:37] LABS: C Reactive Protein 1.5 mg/dL (0.0-0.8)
[2020-06-01 10:02] LABS: Ferritin 313.9 ng/mL (22.0-322.0)
--- NOTE | 2020-06-01 12:33 | P.PN ---
Subjective Progress Note Date: 06/01/20 Principal diagnosis: Acute COVID 19 pneumonia Patient is in 54-year-old male with a known history of hypertension, hyperlipidemia, coronary artery disease with history of bypass graft and also stent placement came to ER with complaints of worsening shortness of breath and persistence fevers and not feeling well. Patient states that he has been having shortness of breath and cough and fevers and cold-like symptoms for the past 2 weeks and was seen at [facility] about a week ago and tested for COVID-19 viral infection which came out positive. Patient was told to go to hospital if he gets low oxygen below 90%. Patient presents to ER due to shortness of breath and not feeling well. Chest x-ray showed mild infiltrate in the left lower lobe. No heart failure is seen. Normal heart.Lab data showed d-dimer 0.31, ferritin 385, LDH 812 and CRP 54.2. TSH 2.94. Procalcitonin 0.05 On 05/30/2020 patient seen in follow-up on general medical surgical floor, he is currently on 2 L of oxygen pulse ox of 91-94%, he has no specific complaints, some mild cough, no complaint of chest pain, his been afebrile. Today's chest x-ray has been reviewed showing the peripheral infiltrate in the left lower lobe laterally. Today's labs have been reviewed showing a d-dimer of 0.3, LDH is trending down and come down to 286, CRP is down to 2.9. Patient continues on doxycycline, oral dexamethasone, she received a second dose of Remdesivir. He is on zinc supplement, and a prophylactic dose of Lovenox On 05/31/2020 patient seen in follow-up on general medical surgical floor. Clinically he remains stable, he is on room air, with pulse ox of 92%, hemodynamically stable, he has been afebrile. No significant cough, no chest pain, breathing is comfortable, with blood cell count is 11.2, hemoglobin is 15.5, d-dimer 0.39, electrolytes were within normal limits, LDH is relatively stable at 298, and CRP is trending down, 1.6, patient will receive his third dose of Remdesivir, and she remains on combination of oral Decadron, prophylactic dose of Lovenox, and zinc sulfate. No acute events overnight On 06/01/2020 patient seen in follow-up on medical medical surgical floor, he is calm and comfortable, no acute distress, no difficulty breathing, he is on room air, pulse ox of 91%, patient is up in the shower today, he said no worsening dyspnea, no cough or congestion, no chest pain. He's had no fever or chills, but signs have been stable. Blood culture has shown no growth, his follow-up inflammatory markers are improving. Today he is receiving his third dose of Remdesivir. Clinically has been stable Objective - Vital Signs Vital signs: Vital Signs Temp 98 F 06/01/20 07:00 Pulse 75 06/01/20 07:00 Resp 18 06/01/20 07:00 BP 148/75 06/01/20 07:00 Pulse Ox 91 L 06/01/20 07:00 Intake & Output 05/31/20 06/01/20 06/01/20 18:59 06:59 18:59 Intake Total 600 236 Balance 600 236 Intake: Oral 600 236 Other: # Voids 3 1 - Exam GENERAL EXAM: Alert, very pleasant, 54-year-old white male, on 2 L of oxygen wi th pulse ox of 91-94% comfortable in no apparent distress. HEAD: Normocephalic/atraumatic. EYES: Normal reaction of pupils, equal size. Conjunctiva pink, sclera white. NOSE: Clear with pink turbinates. THROAT: No erythema or exudates. NECK: No masses, no JVD, no thyroid enlargement, no adenopathy. CHEST: No chest wall deformity. Symmetrical expansion. LUNGS: Equal air entry with no crackles, wheeze, rhonchi or dullness. CVS: Regular rate and rhythm, normal S1 and S2, no gallops, no murmurs, no rubs ABDOMEN: Soft, nontender. No hepatosplenomegaly, normal bowel sounds, no guarding or rigidity. EXTREMITIES: No clubbing, no edema, no cyanosis, 2+ pulses and upper and lower extremities. MUSCULOSKELETAL: Muscle strength and tone normal. SPINE: No scoliosis or deformity SKIN: No rashes CENTRAL NERVOUS SYSTEM: Alert and oriented -3. No focal deficits, tone is normal in all 4 extremities. PSYCHIATRIC: Alert and oriented -3. Appropriate affect. Intact judgment and insight. - Labs CBC & Chem 7: 05/31/20 06:16 05/31/20 06:16 Labs: Abnormal Lab Results - Last 24 Hours (Table) 06/01/20 Range/Units 06:00 Lactate Dehydrogenase 257 H (120-246) U/L C-Reactive Protein 1.5 H (0.0-0.8) mg/dL Microbiology - Last 24 Hours (Table) 05/27/20 16:01 Blood Culture - Preliminary Blood No Growth after 96 hours Assessment and Plan Plan: Assessment: #1. COVID 19 pneumonia mainly in the left lower lobe #2. Elevated inflammatory markers related to the above #3. Hypertension #4. Coronary artery disease with stent placement and previous history of bypass grafting #5. Hyperlipidemia #6. Lifetime nonsmoker Plan: Patient has been stable, no fever, no chills, no dyspnea, he is on room air, tolerating and ablation in the room, no acute events overnight, he is receiving his third dose of Remdesivir, he has remained stable. Continue with Decadron, prophylactic dose of Lovenox, his inflammatory markers are trending down, his vitals have been stable, could possibly be considered for discharge home today or tomorrow I performed a history & physical examination of the patient and discussed their management with my nurse practitioner, Angie Rosa. I reviewed the nurse practitioner's note and agree with the documented findings and plan of care. Lung sounds are positive for diminished breath sounds. The findings and the impression was discussed with the patient. I attest to the documentation by the nurse practitioner. Time with Patient: Less than 30
[2020-06-01] MEDS: REMDESIVIR (EUA) 100 MG in SODIUM CHLORIDE 0.9% 250 ML IVPB SCH (13:15)
--- NOTE | 2020-06-01 13:21 | P.DS ---
Providers Date of admission: 05/27/20 17:25 Attending physician: Sean Gallegos Consults: 05/27/20 17:25 Consult Physician Routine Consulting Provider: Jim Jason Consult Reason/Comments: covid Do you want consulting provider notified?: Yes 05/27/20 17:26 Consult Physician Routine Consulting Provider: Derek Melchor Consult Reason/Comments: covid Do you want consulting provider notified?: Yes Primary care physician: [facility] Hospital Course: Patient is in 54-year-old male with a known history of hypertension, hyperlipidemia, coronary artery disease with history of bypass graft and also s tent placement came to ER with complaints of worsening shortness of breath and persistence fevers and not feeling well. Patient states that he has been having shortness of breath and cough and fevers and cold-like symptoms for the past 2 weeks and was seen at [facility] about a week ago and tested for COVID-19 viral infection which came out positive. Patient was told to go to hospital if he gets low oxygen below 90%. Patient presents to ER due to shortness of breath and not feeling well. Chest x-ray showed mild infiltrate in the left lower lobe. No heart failure is seen. Normal heart. Lab data showed d-dimer 0.31, ferritin 385, LDH 812 and CRP 54.2 TSH 2.94 Procalcitonin 0.05 05/29/2020 Patient is currently lying in the bed and is comfortable. No acute distress. Patient has been afebrile. Blood culture showed no growth Patient is being continued on remdesivir, lovenox and dexamethasone. Continue with vitamin supplementation with vitamin D and C No other acute overnight issues. Continue with contact and droplet precautions. 05/30/2020 Patient is feeling better but still having borderline oxygen saturations will continue to monitor and above-mentioned medications, discharge depends on the clinical course 05/31/2020 Patient is not requiring any oxygen today will continue and complete course with Remdesivir and steroids and possibility of discharge tomorrow. No fevers for last 24 hours 06/01/2020 Patient is clinically doing well is not requiring oxygen we'll give him a 3-4 more days of Decadron and will be discharged today. Patient received from Remdesivir here. PHYSICAL EXAMINATION: GENERAL: The patient is alert and oriented x3, not in any acute distress. Well developed, well nourished. HEENT: Pupils are round and equally reacting to light. EOMI. No scleral icterus. No conjunctival pallor. Normocephalic, atraumatic. No pharyngeal erythema. No thyromegaly. CARDIOVASCULAR: S1 and S2 present. No murmurs, rubs, or gallops. PULMONARY: Chest is clear to auscultation, no wheezing or crackles. ABDOMEN: Soft, nontender, nondistended, normoactive bowel sounds. No palpable organomegaly. MUSCULOSKELETAL: No joint swelling or deformity. EXTREMITIES: No cyanosis, clubbing, or pedal edema. NEUROLOGICAL: Gross neurological examination did not reveal any focal deficits. SKIN: No rashes. Note: Because of COVID 19 isolation, some of the history and physical exam findings or indirect and obtained from nursing staff, and other physician examinations to avoid unnecessary contact with the patient. Assessment and Plan Assessment: COVID-19 pneumonia mainly left lower lobe Hypertension Hyperlipidemia Coronary disease with a stent placement History of coronary artery bypass graft Patient Condition at Discharge: Fair Plan - Discharge Summary Discharge Rx Participant: Yes New Discharge Prescriptions: New dexAMETHasone [Hexadrol] 6 mg PO DAILY #4 tab Zinc Sulfate [Orazinc] 220 mg PO DAILY@1200 #30 cap Famotidine [Pepcid] 20 mg PO DAILY #20 tab Doxycycline [Vibramycin] 100 mg PO BID #6 cap Ascorbic Acid [Vitamin C] 1,000 mg PO DAILY #10 tab Cholecalciferol [Vitamin D3] 400 unit PO DAILY #10 tab Continue Metoprolol Succinate (ER) [Toprol XL] 50 mg PO DAILY Lisinopril-Hctz 20-12.5 mg [Zestoretic 20-12.5] 1 tab PO DAILY Clopidogrel [Plavix] 75 mg PO DAILY Aspirin [[place] Aspirin EC] 81 mg PO DAILY Atorvastatin Calcium [Lipitor] 80 mg PO HS Discharge Medication List Aspirin [[place] Aspirin EC] 81 mg PO DAILY 05/27/20 [History] Atorvastatin Calcium [Lipitor] 80 mg PO HS 05/27/20 [History] Clopidogrel [Plavix] 75 mg PO DAILY 05/27/20 [History] Lisinopril-Hctz 20-12.5 mg [Zestoretic 20-12.5] 1 tab PO DAILY 05/27/20 [History] Metoprolol Succinate (ER) [Toprol XL] 50 mg PO DAILY 10/02/20 [History] Ascorbic Acid [Vitamin C] 1,000 mg PO DAILY #10 tab 06/01/20 [Rx] Cholecalciferol [Vitamin D3] 400 unit PO DAILY #10 tab 06/01/20 [Rx] Doxycycline [Vibramycin] 100 mg PO BID #6 cap 06/01/20 [Rx] Famotidine [Pepcid] 20 mg PO DAILY #20 tab 06/01/20 [Rx] Zinc Sulfate [Orazinc] 220 mg PO DAILY@1200 #30 cap 06/01/20 [Rx] dexAMETHasone [Hexadrol] 6 mg PO DAILY #4 tab 06/01/20 [Rx] Follow up Appointment(s)/Referral(s): Omar Spencer MD [Primary Care Provider] - 3 Days Discharge Disposition: HOME SELF-CARE
== END 2020-06-01 15:52 | disposition home or self-care (01) | DRG 177 ==
LOC: EC 15:31 → 4SSUR 17:25
PROVIDERS: ADMIT Hospitalist; ATTEND Hospitalist
PROC: XW033E5 Introduction of Remdesivir Anti-infective into Peripheral Vein, Percutaneous Approach, New Technology Group 5 (ICD-10-PCS; principal; 2020-05-28)
DX: U07.1 COVID-19 (principal); J12.89 Other viral pneumonia; R09.02 Hypoxemia; E78.5 Hyperlipidemia, unspecified; I10 Essential (primary) hypertension; I25.10 Atherosclerotic heart disease of native coronary artery without angina pectoris; Z95.1 Presence of aortocoronary bypass graft; Z95.5 Presence of coronary angioplasty implant and graft; Z79.82 Long term (current) use of aspirin; Z79.02 Long term (current) use of antithrombotics/antiplatelets; Z79.899 Other long term (current) drug therapy; Z87.442 Personal history of urinary calculi
CPT/HCPCS: 36415; 71045; 80048; 80053; 82306; 82728; 83605; 83615; 83735; 84145; 84443; 85025; 85027; 85379; 85610; 85730; 86140; 87040; 93005; 94640; 94760; 94762; 99291